=== PATIENT | male | born 1955 ===

== ENCOUNTER 2020-06-25 | Outpatient (CLI) | payer OTHER | END 2020-06-25 14:23 | disposition home or self-care (01) | LOC: PPH VACUNA | PROVIDERS: ATTEND Emergency Medicine Pediatric Emergency Medicine | DX: Z23 Encounter for immunization (principal) ==

== ENCOUNTER 2020-07-16 07:56 | Outpatient (CLI) | payer OTHER | END 2020-07-16 15:00 | disposition home or self-care (01) | LOC: PPH VACUNA 07:56 | PROVIDERS: ATTEND Emergency Medicine Pediatric Emergency Medicine | DX: Z23 Encounter for immunization (principal) ==

== ENCOUNTER → 2022-12-21 08:07 | Outpatient (CLI) | payer OTHER ==
[~2022-12-21 08:07] MED LIST: AMLODIP PO; LOSART PO; METOP PO
== END | disposition home or self-care (01) ==
LOC: LAB 08:07
DX: E87.5 Hyperkalemia (principal)

== ENCOUNTER 2022-12-27 06:14 | Day surgery (SDC) | payer OTHER ==
[~2022-12-27] VITALS: Ht 172.7 cm; Wt 74.4 kg
[2022-12-27] MEDS ORDERED: PERCOCET 5-3251 EACH PO (12:36)
== END 2022-12-27 16:00 | disposition home or self-care (01) ==
LOC: CIR.AMB 06:14
PROVIDERS: ATTEND Surgery
DX: N52.01 Erectile dysfunction due to arterial insufficiency (principal); Z20.822 Contact with and (suspected) exposure to COVID-19
CPT/HCPCS: 54405; C1813